=== PATIENT | female | born 1995 | race Two or more races ===

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

== ENCOUNTER 2017-05-14 17:39 | Emergency (ER) | payer SELFPAY ==
[~2017-05-14] VITALS: Ht 162.6 cm; Wt 77.1 kg
--- NOTE | 2017-05-14 18:05 | NUR ---
Dr Roy at the bedside for eval and exam.
[2017-05-14] MEDS ORDERED: IV NORMAL SALINE 1000 ML BAG IV ONE (18:15)
[2017-05-14] MEDS ORDERED: ONDANSETRON 4 MG/2 ML VIAL IV ONE (18:15)
[2017-05-14 18:21] LABS: *BLOOD, URINE NEGATIVE (NEGATIVE); *CLARITY,URINE CLEAR (CLEAR); *COLOR,URINE YELLOW (YELLOW); *KETONES,URINE TRACE (NEGATIVE); *PROTEIN,URINE 1+ (NEGATIVE); LEUKOCYTE ESTERASE ,URINE TRACE (NEGATIVE); NITRITE, URINE NEGATIVE (NEGATIVE); UGLUCOSE NEGATIVE (NEGATIVE)
[2017-05-14 18:22] LABS: *BILIRUBIN,URIN 1+ (NEGATIVE)
[2017-05-14 18:23] LABS: BACTERIA,URINE NONE SEEN /HPF (NONE SEEN); RBC,URINE 0-3 /HPF (0-3); SQUAMOUS EPITHELIAL CELL,UR FEW /HPF (NONE SEEN)
[2017-05-14 18:24] LABS: MUCUS,URINE MODERATE /LPF (0-FEW)
[2017-05-14] MEDS ORDERED: ONDANSETRON 4 MG/2 ML VIAL ONE (18:38)
[2017-05-14 18:42] LABS: BASOPHILS # (AUTO) 0.1 K/uL (0.0-8.0); BASOPHILS % (AUTO) 0.9 % (0.0-2.0); EOSINOPHILS % (AUTO) 0.1 % (0.0-7.0); HEMATOCRIT 43.9 % (37-47); HEMOGLOBIN 14.7 G/DL (12.0-16.0); LYMPHOCYTES # (AUTO) 0.5 K/UL (0.8-4.8); LYMPHOCYTES % (AUTO) 4.6 % (20.5-74.5); MEAN CORPUSCULAR HEMOGLOBIN 29.4 UUG (27.0-31.0); MEAN CORPUSCULAR HGB CONC 34 g/dL (32.0-37.0); MEAN CORPUSCULAR VOLUME 87.8 FL (81.0-99.0); MONOCYTES # (AUTO) 0.5 K/UL (0.1-1.30); MONOCYTES % (AUTO) 4.3 % (0-11); NEUTROPHILS # (AUTO) 10.3 K/UL (1.8-8.9); NEUTROPHILS % (AUTO) 90.1 % (31.5-64.5); PLATELET COUNT (AUTO) 231 K/UL (150-450); WHITE BLOOD COUNT (AUTO) 11.4 K/UL (4.0-11.2)
[2017-05-14 19:03] LABS: BILIRUBIN,DIRECT 0.3 mg/dL (0.0-0.2); BILIRUBIN,TOTAL 1.6 mg/dL (0.2-1.0); CREATININE 0.9 mg/dL (0.6-1.3); POTASSIUM 3.3 mmol/L (3.5-5.1); TOTAL PROTEIN, SERUM 7.4 g/dL (6.4-8.2)
--- NOTE | 2017-05-14 19:20 | NUR ---
Patient to Radiology for CT scan via gurney.
--- NOTE | 2017-05-14 19:35 | NUR ---
Patient returned from CT, no acute distress noted.
--- NOTE | 2017-05-14 19:40 | NUR ---
Radiology at bedside for US.
--- NOTE | 2017-05-14 20:04 | NUR ---
Radiology completed US, preliminary results to ERMD.
--- NOTE | 2017-05-14 21:00 | NUR ---
Patient performed PO challenge, no n/v stated by patient.
--- NOTE | 2017-05-14 21:14 | NUR ---
Patient discharged to home in stable conditon. Written and verbal after care instructions given. Patient verbalizes understanding of instructions.
== END 2017-05-14 21:15 | disposition home or self-care (01) ==
LOC: ER 17:41
DX: K52.9 Noninfective gastroenteritis and colitis, unspecified (principal); K80.20 Calculus of gallbladder without cholecystitis without obstruction
CPT/HCPCS: 36415; 74176; 76856; 80048; 80076; 81001; 83690; 84703; 85025; 96361; 96374; 99285; A4663; J2405; J7030; 87086

== ENCOUNTER 2018-02-27 01:57 | Emergency (ER) | payer MEDICAID ==
[~2018-02-27] VITALS: Ht 160 cm; Wt 77.1 kg
[2018-02-27] MEDS ORDERED: METOCLOPRAMIDE HCL 10 MG/2 ML VIAL IV ONE (02:15)
[2018-02-27] MEDS ORDERED: IV LACTATED RINGERS SOLUTION 1,000 ML IV ONE (02:15)
[2018-02-27] MEDS ORDERED: METOCLOPRAMIDE HCL 10 MG/2 ML VIAL ONE (02:28)
[2018-02-27 02:59] LABS: BASOPHILS % (AUTO) 0.4 % (0.0-2.0); EOSINOPHILS # (AUTO) 0.1 K/uL (0.0-0.7); EOSINOPHILS % (AUTO) 0.5 % (0.0-7.0); HEMOGLOBIN 13.6 g/dL (10.9-14.3); LYMPHOCYTES # (AUTO) 1.5 K/uL (20.0-40.0); MEAN CORPUSCULAR HEMOGLOBIN 31.3 uug (24.7-32.8); MEAN CORPUSCULAR HGB CONC 35 g/dL (32.3-35.6); MONOCYTES # (AUTO) 0.8 K/uL (2.0-10.0); MONOCYTES % (AUTO) 6.9 % (0-11); NEUTROPHILS # (AUTO) 8.9 K/uL (1.8-8.9); NEUTROPHILS % (AUTO) 79.2 % (31.5-64.5); PLATELET COUNT (AUTO) 229 K/uL (179-408); RED BLOOD CELL COUNT(AUTO) 4.34 MIL/uL (3.63-4.92); WHITE BLOOD COUNT (AUTO) 11.3 K/uL (3.8-11.8)
[2018-02-27 03:00] LABS: *BILIRUBIN,URIN NEGATIVE (NEGATIVE); *BLOOD, URINE NEGATIVE (NEGATIVE); *CLARITY,URINE CLOUDY (CLEAR); *COLOR,URINE YELLOW (YELLOW); *KETONES,URINE NEGATIVE (NEGATIVE); *PROTEIN,URINE NEGATIVE (NEGATIVE); LEUKOCYTE ESTERASE ,URINE TRACE (NEGATIVE); NITRITE, URINE NEGATIVE (NEGATIVE); PH,URINE 8.5 (5.0-8.0); UGLUCOSE NEGATIVE (NEGATIVE)
[2018-02-27 03:04] LABS: RBC,URINE 0-3 /HPF (0-3)
[2018-02-27 03:05] LABS: BACTERIA,URINE FEW /HPF (NONE SEEN); SQUAMOUS EPITHELIAL CELL,UR FEW /HPF (NONE SEEN); URINE AMORPHOUS PHOSPHATES MANY /HPF
[2018-02-27 03:08] LABS: CREATININE 0.7 mg/dL (0.6-1.3)
[2018-02-27 03:13] LABS: BILIRUBIN,DIRECT 0.3 mg/dL (0.0-0.2); BILIRUBIN,TOTAL 1.7 mg/dL (0.2-1.0)
[2018-02-27] MEDS ORDERED: POTASSIUM CHLORIDE 20 MEQ TAB.PRT.SR PO ONE (03:30)
--- NOTE | 2018-02-27 03:30 | NUR ---
PO CHALLENGE SUCCESSFULLY PASSED
--- NOTE | 2018-02-27 04:00 | NUR ---
Patient discharged to home in stable conditon. Written and verbal after care instructions given. Patient verbalizes understanding of instructions. Patient able to ambulate unassisted with a steady gait. Patient left with all personal belongings.
[2018-02-27 04:06] VITALS: BP 106/76
== END 2018-02-27 04:00 | disposition home or self-care (01) ==
LOC: ER 02:01
DX: O21.0 Mild hyperemesis gravidarum (principal); O26.891 Other specified pregnancy related conditions, first trimester; E87.6 Hypokalemia; Z3A.01 Less than 8 weeks gestation of pregnancy
CPT/HCPCS: 36415; 83690; 85025; A4663; J2765; J7030; J7120

== ENCOUNTER 2018-03-04 21:03 | Emergency (ER) | payer MEDICAID ==
[~2018-03-04] VITALS: Ht 160 cm; Wt 72.6 kg
--- NOTE | 2018-03-04 21:45 | NUR ---
Pt provided urine sample, sent to lab.
--- NOTE | 2018-03-04 22:09 | NUR ---
Dr. Murray at bedside for MSE.
[2018-03-04] MEDS ORDERED: IV NORMAL SALINE 1000 ML BAG IV ONE (22:15)
[2018-03-04] MEDS ORDERED: ONDANSETRON 4 MG/2 ML VIAL IV ONE (22:15)
[2018-03-04] MEDS ORDERED: ONDANSETRON 4 MG/2 ML VIAL ONE (22:26)
[2018-03-04 22:27] LABS: *BILIRUBIN,URIN NEGATIVE (NEGATIVE); *BLOOD, URINE Trace-intact (NEGATIVE); *COLOR,URINE YELLOW (YELLOW); *KETONES,URINE NEGATIVE (NEGATIVE); *PROTEIN,URINE NEGATIVE (NEGATIVE); *UROBILINOGEN,URINE 0.2 E.U./dl (NORMAL); LEUKOCYTE ESTERASE ,URINE 1+ (NEGATIVE); NITRITE, URINE NEGATIVE (NEGATIVE); PH,URINE 7.5 (5.0-8.0); UGLUCOSE NEGATIVE (NEGATIVE)
[2018-03-04 22:36] LABS: *CLARITY,URINE CLOUDY (CLEAR)
[2018-03-04 22:39] LABS: CREATININE 0.7 mg/dL (0.6-1.3); POTASSIUM 3.4 mmol/L (3.5-5.1)
[2018-03-04 22:46] LABS: BACTERIA,URINE NONE SEEN /HPF (NONE SEEN); RENAL EPITHELIAL CELLS,URINE FEW /LPF (NONE SEEN); SQUAMOUS EPITHELIAL CELL,UR FEW /HPF (NONE SEEN); TRICHOMONAS,URINE FEW /HPF (NONE SEEN); URINE AMORPHOUS PHOSPHATES MODERATE /HPF
[2018-03-04] MEDS ORDERED: NITROFURANTOIN/NITROFURAN MAC 100 MG CAPSULE PO ONE (23:30)
[2018-03-04] MEDS ORDERED: NITROFURANTOIN/NITROFURAN MAC 100 MG CAPSULE ONE (23:39)
[2018-03-05] MEDS ORDERED: METRONIDAZOLE 500 MG TABLET PO ONE (00:15)
[2018-03-05] MEDS ORDERED: METRONIDAZOLE 500 MG TABLET ONE (00:24)
[2018-03-05] MEDS ORDERED: POTASSIUM CHLORIDE 20 MEQ TAB.PRT.SR ONE (00:24)
[2018-03-05] MEDS ORDERED: POTASSIUM CHLORIDE 20 MEQ TAB.PRT.SR PO ONE (00:30)
--- NOTE | 2018-03-05 00:31 | NUR ---
IV removed. Catheter intact and site benign. Pressure and 4x4 gauze applied to site. No bleeding noted.
--- NOTE | 2018-03-05 00:31 | NUR ---
Patient discharged to home in stable conditon. Written and verbal after care instructions given. Patient verbalizes understanding of instructions.
[2018-03-05 00:32] VITALS: BP 116/84
== END 2018-03-05 00:33 | disposition home or self-care (01) ==
LOC: ER 21:05
DX: O21.0 Mild hyperemesis gravidarum (principal); O23.40 Unspecified infection of urinary tract in pregnancy, unspecified trimester; O26.899 Other specified pregnancy related conditions, unspecified trimester; A59.9 Trichomoniasis, unspecified; Z3A.00 Weeks of gestation of pregnancy not specified
CPT/HCPCS: 36415; 80048; 81001; 87086; 96361; 96374; 99285; A4663; J2405; J7030 ×2

== ENCOUNTER 2018-05-11 14:00 | Emergency (ER) | payer MEDICAID ==
[~2018-05-11] VITALS: Ht 162.6 cm; Wt 72.6 kg
--- NOTE | 2018-05-11 14:34 | NUR ---
PATIENT WAS SEEN BY DR BAER. URINE SENT TO LAB.
[2018-05-11 14:39] LABS: *BILIRUBIN,URIN NEGATIVE (NEGATIVE); *BLOOD, URINE NEGATIVE (NEGATIVE); *CLARITY,URINE CLEAR (CLEAR); *COLOR,URINE YELLOW (YELLOW); *KETONES,URINE 2+ (NEGATIVE); *PROTEIN,URINE NEGATIVE (NEGATIVE); *URINE HCG, QUAL NEGATIVE (NEGATIVE); *UROBILINOGEN,URINE 0.2 E.U./dl (NORMAL); LEUKOCYTE ESTERASE ,URINE NEGATIVE (NEGATIVE); NITRITE, URINE NEGATIVE (NEGATIVE); UGLUCOSE NEGATIVE (NEGATIVE)
[2018-05-11 14:44] LABS: BACTERIA,URINE NONE SEEN /HPF (NONE SEEN); RBC,URINE 0-3 /HPF (0-3); SQUAMOUS EPITHELIAL CELL,UR FEW /HPF (NONE SEEN)
--- NOTE | 2018-05-11 16:01 | NUR ---
AWAITING FOR ULTRASOUND....
--- NOTE | 2018-05-11 16:48 | NUR ---
DC, RX (INCLUDING PRECAUTIONS) AND FOLLOW UP INSTRUCTIONS GIVEN AND EXPLAINED TO PATIENT WHO STATES SHE UNDERSTANDS ALL INSTRUCTIONS... PATIENT TO SEE INSPECTOR FILTER TIP JAZMÍN
[2018-05-11] MEDS ORDERED: diphenhydrAMINE 50 MG/1 ML VIAL IV ONE (17:00)
== END 2018-05-11 16:50 | disposition home or self-care (01) ==
LOC: ER 14:00
DX: N80.9 Endometriosis, unspecified (principal)
CPT/HCPCS: 76856; 84703; A4663

== ENCOUNTER 2018-06-30 18:54 | Emergency (ER) | payer MEDICAID ==
[~2018-06-30] VITALS: Ht 162.6 cm; Wt 77.1 kg
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
[2018-06-30] MEDS ORDERED: IBUPROFEN 800 MG TABLET PO ONE (20:30)
[2018-06-30] MEDS ORDERED: IBUPROFEN 800 MG TABLET ONE (20:31)
--- NOTE | 2018-06-30 20:43 | NUR ---
Xray at bedside.
--- NOTE | 2018-06-30 20:50 | NUR ---
Dr. Cochran at bedside.
--- NOTE | 2018-06-30 21:05 | NUR ---
Patient discharged to home in stable conditon. Written and verbal after care instructions given. Patient verbalizes understanding of instructions.
== END 2018-06-30 21:06 | disposition home or self-care (01) ==
LOC: ER 18:56
DX: S89.91XA Unspecified injury of right lower leg, initial encounter (principal); X50.1XXA Overexertion from prolonged static or awkward postures, initial encounter; Y93.89 Activity, other specified; Y92.89 Other specified places as the place of occurrence of the external cause; Y99.8 Other external cause status
CPT/HCPCS: A4663

== ENCOUNTER 2020-03-05 17:17 | Emergency (ER) | payer MEDICAID, OTHER ==
[~2020-03-05] VITALS: Ht 162.6 cm; Wt 83.9 kg
[2020-03-05 18:00] LABS: BASOPHILS # (AUTO) 0.1 K/uL (0.0-8.0); BASOPHILS % (AUTO) 0.6 % (0.0-2.0); CREATININE 0.7 mg/dL (0.6-1.3); EOSINOPHILS # (AUTO) 0.1 K/uL (0.0-0.7); EOSINOPHILS % (AUTO) 0.7 % (0.0-7.0); HEMATOCRIT 40.3 % (31.2-41.9); HEMOGLOBIN 13.7 g/dL (10.9-14.3); LYMPHOCYTES # (AUTO) 2.8 K/uL (20.0-40.0); LYMPHOCYTES % (AUTO) 23.7 % (20.5-51.5); MEAN CORPUSCULAR HEMOGLOBIN 29.5 uug (24.7-32.8); MEAN CORPUSCULAR HGB CONC 34 g/dL (32.3-35.6); MEAN CORPUSCULAR VOLUME 86.9 fL (75.5-95.3); MONOCYTES # (AUTO) 1.1 K/uL (2.0-10.0); MONOCYTES % (AUTO) 9.5 % (0.0-11.0); NEUTROPHILS # (AUTO) 7.7 K/uL (1.8-8.9); NEUTROPHILS % (AUTO) 65.5 % (38.5-71.5); PLATELET COUNT (AUTO) 248 K/uL (179-408); POTASSIUM 3.8 mmol/L (3.5-5.1); RED BLOOD CELL COUNT(AUTO) 4.64 MIL/uL (3.63-4.92); WHITE BLOOD COUNT (AUTO) 11.7 K/uL (3.8-11.8)
[2020-03-05 18:06] LABS: BILIRUBIN,DIRECT 0.2 mg/dL (0.0-0.2); BILIRUBIN,TOTAL 0.7 mg/dL (0.2-1.0); TOTAL PROTEIN, SERUM 7.2 g/dL (6.4-8.2)
--- NOTE | 2020-03-05 19:00 | NUR ---
Received report from MARISA Bertrand pt in bed, aa/ox4 able to speak in complete sentences respirations even and unlabored no s/s of distress safety precautions in place. bed locked, lowest position. instructed pt to call nurse for assistance
[2020-03-05 19:31] LABS: *BILIRUBIN,URIN NEGATIVE (NEGATIVE); *BLOOD, URINE NEGATIVE (NEGATIVE); *CLARITY,URINE CLEAR (CLEAR); *COLOR,URINE LIGHT YELLOW (YELLOW); *KETONES,URINE NEGATIVE (NEGATIVE); *UROBILINOGEN,URINE 0.2 E.U./dl (NORMAL); LEUKOCYTE ESTERASE ,URINE NEGATIVE (NEGATIVE); NITRITE, URINE NEGATIVE (NEGATIVE); UGLUCOSE NEGATIVE (NEGATIVE)
--- NOTE | 2020-03-05 19:59 | NUR ---
Patient discharged to home in stable condition. Written and verbal after care instructions given. Patient verbalizes understanding of instructions. Stressed follow up or return to ER for worsening s/s. aa/ox4. able to make needs known. in stable condition ambulatory with steady gait all belongings with pt
[2020-03-05 20:07] VITALS: BP 127/83
== END 2020-03-05 20:00 | disposition home or self-care (01) ==
LOC: ER 17:17
DX: O20.9 Hemorrhage in early pregnancy, unspecified (principal); Z3A.01 Less than 8 weeks gestation of pregnancy
CPT/HCPCS: 36415; 76856; 85025; 85730; 86850; 86900; 86901; A4663

== ENCOUNTER 2021-02-24 10:20 | Emergency (ER) | payer OTHER ==
[~2021-02-24] VITALS: Ht 162.6 cm; Wt 88.5 kg
[2021-02-24] MEDS ORDERED: SULF1TAB48 PO (10:37)
--- NOTE | 2021-02-24 10:41 | NUR ---
PT WAS EVALUATED BY DR ANDERSON. PT WAS D/C'd TO HOME. D/C INSTRUCTIONS GIVEN TO THE PT BY DR ANDERSON.
[2021-02-24 10:43] VITALS: BP 136/81
== END 2021-02-24 10:44 | disposition home or self-care (01) ==
LOC: ER 10:20
DX: S40.862A Insect bite (nonvenomous) of left upper arm, initial encounter (principal); L08.9 Local infection of the skin and subcutaneous tissue, unspecified; W57.XXXA Bitten or stung by nonvenomous insect and other nonvenomous arthropods, initial encounter; Y92.89 Other specified places as the place of occurrence of the external cause
CPT/HCPCS: A4663